=== PATIENT | female | born 1970 | race Two or more races ===

== ENCOUNTER → 2017-12-04 13:09 | Outpatient (CLI) | payer OTHER ==
[~2017-12-04 13:09] MED LIST: BENTYL10 MG/ML PO; DICY20TA PO; FLEXERIL 10 MG PO; GILTUSS TR TAB1 EACH PO; IBUPROFEN800 MG PO; MILLIPRED DP5 M1 PO; ORPH100T PO; SYNTHROID150 MCG; SYNTHROID175 MCG PO; TORADOL10 MG; TRAMADOL HCL50 MG PO; VOLTAREM 50 MG PO; ZITHROMAX TRI-500 MG PO; ZYRTEC10 MG PO
== END | disposition home or self-care (01) ==
LOC: PPHC 13:09
DX: R22.9 Localized swelling, mass and lump, unspecified (principal); E03.8 Other specified hypothyroidism

== ENCOUNTER 2017-12-09 13:22 | Outpatient (CLI) | payer OTHER | END 2017-12-09 13:33 | disposition home or self-care (01) | LOC: MAMO-SONO 13:22 | DX: Z12.31 Encounter for screening mammogram for malignant neoplasm of breast (principal); N63.20 Unspecified lump in the left breast, unspecified quadrant ==

== ENCOUNTER 2017-12-25 13:39 | Outpatient (CLI) | payer OTHER | END 2017-12-25 13:49 | disposition home or self-care (01) | LOC: SONOGRAMA 13:39 | DX: N64.89 Other specified disorders of breast (principal) ==

== ENCOUNTER 2018-05-19 16:21 | Outpatient (CLI) | payer OTHER | END 2018-05-19 16:26 | disposition home or self-care (01) | LOC: LAB 16:21 | DX: R50.9 Fever, unspecified (principal) ==

== ENCOUNTER 2018-11-03 15:17 | Outpatient (CLI) | payer OTHER | END 2018-11-03 15:23 | disposition home or self-care (01) | LOC: RAD 15:17 | DX: M79.644 Pain in right finger(s) (principal) ==

== ENCOUNTER 2019-01-30 05:29 | Emergency (ER) | payer OTHER ==
[~2019-01-30] VITALS: Ht 162.6 cm; Wt 84.4 kg
== END 2019-01-30 14:00 | disposition home or self-care (01) ==
LOC: ER 05:29
DX: S61.431A Puncture wound without foreign body of right hand, initial encounter (principal); W46.0XXA Contact with hypodermic needle, initial encounter; Y93.89 Activity, other specified; Y92.69 Other specified industrial and construction area as the place of occurrence of the external cause; Y99.8 Other external cause status

== ENCOUNTER 2019-02-21 09:34 | Outpatient (CLI) | payer OTHER | END 2019-02-21 09:40 | disposition home or self-care (01) | LOC: LAB 09:34 | DX: E78.49 Other hyperlipidemia (principal); E55.9 Vitamin D deficiency, unspecified; N64.4 Mastodynia; E03.8 Other specified hypothyroidism ==

== ENCOUNTER → 2019-06-09 | Outpatient (CLI) | payer OTHER | END | disposition home or self-care (01) | LOC: RAD 13:59 | DX: M12.512 Traumatic arthropathy, left shoulder (principal); M54.2 Cervicalgia ==

== ENCOUNTER 2019-08-11 14:06 | Outpatient (CLI) | payer OTHER | END 2019-08-11 14:11 | disposition home or self-care (01) | LOC: LAB 14:06 | DX: R05 Cough (principal); J11.1 Influenza due to unidentified influenza virus with other respiratory manifestations ==

== ENCOUNTER → 2019-08-21 | Outpatient (CLI) | payer OTHER | END | disposition home or self-care (01) | LOC: MAMO-SONO 14:22 | DX: Z12.31 Encounter for screening mammogram for malignant neoplasm of breast (principal) ==

== ENCOUNTER → 2020-01-04 14:06 | Outpatient (CLI) | payer OTHER | END | disposition home or self-care (01) | LOC: LAB 14:06 | DX: J11.1 Influenza due to unidentified influenza virus with other respiratory manifestations (principal); R05 Cough ==

== ENCOUNTER → 2020-08-18 | Outpatient (CLI) | payer OTHER | END | disposition home or self-care (01) | LOC: LAB 06:46 | PROVIDERS: ATTEND Internal Medicine Cardiovascular Disease | DX: E03.8 Other specified hypothyroidism (principal); I10 Essential (primary) hypertension; E11.9 Type 2 diabetes mellitus without complications; E78.2 Mixed hyperlipidemia; N39.0 Urinary tract infection, site not specified ==

== ENCOUNTER 2020-08-19 17:25 | Outpatient (CLI) | payer OTHER | END 2020-08-19 17:26 | disposition home or self-care (01) | LOC: PPH VACUNA 17:25 | DX: Z23 Encounter for immunization (principal) ==

== ENCOUNTER 2020-09-06 07:09 | Outpatient (CLI) | payer OTHER | END 2020-09-06 07:12 | disposition home or self-care (01) | LOC: SONOGRAMA 07:09 → MAMO-SONO 07:15 | PROVIDERS: ATTEND Internal Medicine Cardiovascular Disease | DX: R10.84 Generalized abdominal pain (principal) ==

== ENCOUNTER 2021-03-30 05:58 | Emergency (ER) | payer OTHER ==
[~2021-03-30] VITALS: Ht 172.7 cm; Wt 81.2 kg
[2021-03-30] MEDS ORDERED: PROTONIX20 MG (06:15)
== END 2021-03-30 16:26 | disposition home or self-care (01) ==
LOC: ER 05:58
DX: K52.9 Noninfective gastroenteritis and colitis, unspecified (principal); E86.0 Dehydration

== ENCOUNTER 2021-04-26 15:03 | Outpatient (CLI) | payer OTHER ==
[~2021-04-26 15:03] MED LIST changes: +PROTONIX20 MG
== END 2021-04-26 15:14 | disposition home or self-care (01) ==
LOC: RAD 15:03
PROVIDERS: ATTEND Internal Medicine Cardiovascular Disease
DX: M46.47 Discitis, unspecified, lumbosacral region (principal); M12.9 Arthropathy, unspecified

== ENCOUNTER 2021-06-02 07:50 | Outpatient (CLI) | payer OTHER | END 2021-06-02 15:00 | disposition home or self-care (01) | LOC: LAB 07:50 | PROVIDERS: ATTEND Internal Medicine Cardiovascular Disease | DX: E03.8 Other specified hypothyroidism (principal); I10 Essential (primary) hypertension; E11.9 Type 2 diabetes mellitus without complications; E78.2 Mixed hyperlipidemia; E55.9 Vitamin D deficiency, unspecified; R10.84 Generalized abdominal pain ==

== ENCOUNTER 2021-06-08 10:21 | Outpatient (CLI) | payer OTHER | END 2021-06-08 10:23 | disposition home or self-care (01) | LOC: NUCLEAR 10:21 | PROVIDERS: ATTEND Internal Medicine Cardiovascular Disease | DX: R10.9 Unspecified abdominal pain (principal); K80.20 Calculus of gallbladder without cholecystitis without obstruction | CPT/HCPCS: 78226; A9537; J2805 ==

== ENCOUNTER 2021-08-29 09:31 | Outpatient (CLI) | payer OTHER | END 2021-08-29 10:31 | disposition home or self-care (01) | LOC: PPH VACUNA 09:31 | PROVIDERS: ATTEND Emergency Medicine Pediatric Emergency Medicine | DX: Z23 Encounter for immunization (principal) ==

== ENCOUNTER 2021-10-03 04:54 | Day surgery (SDC) | payer OTHER | END 2021-10-03 17:30 | disposition home or self-care (01) | LOC: CIR.AMB 04:54 | PROVIDERS: ATTEND Specialist | DX: K80.10 Calculus of gallbladder with chronic cholecystitis without obstruction (principal); Z20.822 Contact with and (suspected) exposure to COVID-19 ==

== ENCOUNTER 2022-01-29 07:00 | Outpatient (CLI) | payer OTHER | END 2022-01-29 07:01 | disposition home or self-care (01) | LOC: LAB 07:00 | PROVIDERS: ATTEND Internal Medicine Gastroenterology | DX: Z20.828 Contact with and (suspected) exposure to other viral communicable diseases (principal) ==

== ENCOUNTER 2022-05-11 06:49 | Outpatient (CLI) | payer OTHER | END 2022-05-11 07:51 | disposition home or self-care (01) | LOC: LAB 06:49 | PROVIDERS: ATTEND Internal Medicine Hematology & Oncology | DX: D50.8 Other iron deficiency anemias (principal); I10 Essential (primary) hypertension; N39.0 Urinary tract infection, site not specified; R91.8 Other nonspecific abnormal finding of lung field; C56.9 Malignant neoplasm of unspecified ovary; N91.2 Amenorrhea, unspecified ==

== ENCOUNTER 2022-05-17 06:38 | Outpatient (CLI) | payer OTHER | END 2022-05-17 06:43 | disposition home or self-care (01) | LOC: LAB 06:38 | PROVIDERS: ATTEND Internal Medicine Hematology & Oncology | DX: D50.0 Iron deficiency anemia secondary to blood loss (chronic) (principal); I10 Essential (primary) hypertension; E03.8 Other specified hypothyroidism; E78.2 Mixed hyperlipidemia; N39.0 Urinary tract infection, site not specified; D35.2 Benign neoplasm of pituitary gland; D53.1 Other megaloblastic anemias, not elsewhere classified; E55.9 Vitamin D deficiency, unspecified; N93.9 Abnormal uterine and vaginal bleeding, unspecified ==

== ENCOUNTER 2022-05-17 07:11 | Outpatient (CLI) | payer OTHER | END 2022-05-17 07:12 | disposition home or self-care (01) | LOC: SONOGRAMA 07:11 | PROVIDERS: ATTEND Internal Medicine Hematology & Oncology | DX: R10.9 Unspecified abdominal pain (principal); R10.11 Right upper quadrant pain; R10.31 Right lower quadrant pain ==

== ENCOUNTER 2022-05-28 06:42 | Outpatient (CLI) | payer OTHER | END 2022-05-28 07:30 | disposition home or self-care (01) | LOC: TOM 06:42 | PROVIDERS: ATTEND Internal Medicine Hematology & Oncology | DX: C56.1 Malignant neoplasm of right ovary (principal); R10.11 Right upper quadrant pain ==

== ENCOUNTER 2022-05-28 07:20 | Outpatient (CLI) | payer OTHER | END 2022-05-28 08:48 | disposition home or self-care (01) | LOC: RAD 07:20 | PROVIDERS: ATTEND Internal Medicine Hematology & Oncology | DX: N64.4 Mastodynia (principal); Z12.31 Encounter for screening mammogram for malignant neoplasm of breast; N63.10 Unspecified lump in the right breast, unspecified quadrant ==

== ENCOUNTER 2022-08-01 12:09 | Outpatient (CLI) | payer OTHER | END 2022-08-01 12:14 | disposition home or self-care (01) | LOC: PPH VACUNA 12:09 | PROVIDERS: ATTEND Emergency Medicine Pediatric Emergency Medicine | DX: Z23 Encounter for immunization (principal) ==

== ENCOUNTER → 2022-09-04 10:02 | Outpatient (CLI) | payer OTHER | END | disposition home or self-care (01) | LOC: LAB 10:02 | PROVIDERS: ATTEND Preventive Medicine Occupational Medicine | DX: U07.1 COVID-19 (principal) ==

== ENCOUNTER → 2022-09-17 11:18 | Outpatient (CLI) | payer OTHER | END | disposition home or self-care (01) | LOC: LAB 11:18 | PROVIDERS: ATTEND Internal Medicine | DX: U07.1 COVID-19 (principal) ==

== ENCOUNTER 2022-11-03 07:46 | Outpatient (CLI) | payer OTHER ==
[~2022-11-03 07:46] MED LIST changes: +LEVO-T175 MCG PO
== END 2022-11-03 07:47 | disposition home or self-care (01) ==
LOC: LAB 07:46
PROVIDERS: ATTEND Internal Medicine
DX: D25.1 Intramural leiomyoma of uterus (principal); D35.2 Benign neoplasm of pituitary gland; E03.9 Hypothyroidism, unspecified; Z13.1 Encounter for screening for diabetes mellitus; Z13.220 Encounter for screening for lipoid disorders; Z13.29 Encounter for screening for other suspected endocrine disorder; E55.9 Vitamin D deficiency, unspecified

== ENCOUNTER 2023-02-22 06:22 | Outpatient (CLI) | payer OTHER | END 2023-02-22 06:23 | disposition home or self-care (01) | LOC: LAB 06:22 | PROVIDERS: ATTEND Internal Medicine | DX: D25.1 Intramural leiomyoma of uterus (principal); D35.2 Benign neoplasm of pituitary gland; E03.9 Hypothyroidism, unspecified; E55.9 Vitamin D deficiency, unspecified; I10 Essential (primary) hypertension; E03.8 Other specified hypothyroidism; E11.65 Type 2 diabetes mellitus with hyperglycemia ==

== ENCOUNTER 2023-06-14 06:38 | Outpatient (CLI) | payer OTHER | END 2023-06-14 06:39 | disposition home or self-care (01) | LOC: LAB 06:38 | PROVIDERS: ATTEND Internal Medicine | DX: E03.8 Other specified hypothyroidism (principal); E78.5 Hyperlipidemia, unspecified; E11.65 Type 2 diabetes mellitus with hyperglycemia; I10 Essential (primary) hypertension ==

== ENCOUNTER 2023-07-19 08:29 | Emergency (ER) | payer OTHER ==
[~2023-07-19] VITALS: Ht 162.6 cm; Wt 78.9 kg
[2023-07-19] MEDS ORDERED: SYNTHROID112 MCG PO (08:45)
== END 2023-07-19 10:48 | disposition home or self-care (01) ==
LOC: ER 08:29
DX: I10 Essential (primary) hypertension (principal)

== ENCOUNTER 2023-09-29 13:09 | Emergency (ER) | payer OTHER ==
[~2023-09-29] VITALS: Ht 162.6 cm; Wt 78.9 kg
[~2023-09-29 13:09] MED LIST changes: +SYNTHROID112 MCG PO
== END 2023-09-29 18:47 | disposition home or self-care (01) ==
LOC: ER 13:09
DX: M54.9 Dorsalgia, unspecified (principal); M25.572 Pain in left ankle and joints of left foot; M25.562 Pain in left knee; W18.39XA Other fall on same level, initial encounter; Y93.89 Activity, other specified; Y92.89 Other specified places as the place of occurrence of the external cause

== ENCOUNTER 2023-11-03 19:01 | Emergency (ER) | payer OTHER ==
[~2023-11-03] VITALS: Ht 162.6 cm; Wt 78.0 kg
== END 2023-11-04 11:04 | disposition home or self-care (01) ==
LOC: ER 19:02
DX: S82.425A Nondisplaced transverse fracture of shaft of left fibula, initial encounter for closed fracture (principal); W10.8XXA Fall (on) (from) other stairs and steps, initial encounter; Y93.89 Activity, other specified; Y92.89 Other specified places as the place of occurrence of the external cause; Y99.9 Unspecified external cause status

== ENCOUNTER 2023-11-07 10:39 | Outpatient (CLI) | payer OTHER | END 2023-11-07 10:42 | disposition home or self-care (01) | LOC: RAD 10:39 | PROVIDERS: ATTEND Orthopaedic Surgery | DX: M25.572 Pain in left ankle and joints of left foot (principal); S82.425A Nondisplaced transverse fracture of shaft of left fibula, initial encounter for closed fracture ==

== ENCOUNTER 2023-11-30 10:44 | Outpatient (CLI) | payer OTHER ==
[2023-11-30 11:55] LABS: HEMATOCRIT 43.9 % (36.0-45.00); HEMOGLOBIN 14.7 g/dL (12.0-15.00); MEAN CELL VOLUME 87.2 fL (80.00-100.00); MEAN CORPUSCULAR HEMOGLOBIN 29.2 pg (27.00-32.0); MEAN CORPUSCULAR HGB CONC 33.5 g/dl (32.0-36.0); PLATELET COUNT 340 K/uL (150-450); RED BLOOD COUNT 5.03 M/uL (4.00-6.00); RED CELL DISTRIBUTION WIDTH 13.5 % (11.5-14.5)
[2023-11-30 12:36] LABS: BILIRUBIN TOTAL 0.76 mg/dL (0.3-1.2); CALCIUM 10.1 mg/dL (8.5-10.1); CHOL HDL RATIO 3.6 (0-5.0); CREATININE SERUM 0.8 mg/dL (0.55-1.02); GFR 75.92; GLOBULINA 3.8 G/DL (2.4-3.5); MAGNESIUM 2.5 mg/dL (1.8-2.4); PHOSPHOROUS 3.7 mg/dL (2.5-4.9); POTASSIUM 4.21 mEq/L (3.5-5.1); T4 FREE 1.32 NG/ML (0.76-1.46); TOTAL PROTEIN 7.8 gm/dL (6.4-8.2); TSH 0.766 uIU/mL (0.358-3.74)
[2023-12-04 12:07] LABS: CALCIUM IONIZED 5.2 mg/dL (4.5-5.6)
[2023-12-06 18:10] LABS: VITAMIN K 0.15 ng/mL (0.10-2.20)
== END 2023-11-30 10:45 | disposition home or self-care (01) ==
LOC: LAB 10:44
PROVIDERS: ATTEND Orthopaedic Surgery
DX: M85.9 Disorder of bone density and structure, unspecified (principal); E83.42 Hypomagnesemia; E56.1 Deficiency of vitamin K; E88.89 Other specified metabolic disorders; M81.8 Other osteoporosis without current pathological fracture; E78.5 Hyperlipidemia, unspecified; D35.2 Benign neoplasm of pituitary gland; E03.8 Other specified hypothyroidism; E11.65 Type 2 diabetes mellitus with hyperglycemia; I10 Essential (primary) hypertension

== ENCOUNTER 2023-12-09 07:31 | Outpatient (CLI) | payer OTHER | END 2023-12-09 07:37 | disposition home or self-care (01) | LOC: RAD 07:31 | PROVIDERS: ATTEND Orthopaedic Surgery | DX: S82.425D Nondisplaced transverse fracture of shaft of left fibula, subsequent encounter for closed fracture with routine healing (principal); M25.562 Pain in left knee ==

== ENCOUNTER 2024-06-11 10:01 | Outpatient (CLI) | payer OTHER ==
[2024-06-11 11:11] LABS: HEMATOCRIT 41.8 % (36.0-45.00); MEAN CELL VOLUME 85.6 fL (80.00-100.00); MEAN CORPUSCULAR HEMOGLOBIN 28.7 pg (27.00-32.0); MEAN CORPUSCULAR HGB CONC 33.6 g/dl (32.0-36.0); PLATELET COUNT 315 K/uL (150-450); RED BLOOD COUNT 4.88 M/uL (4.00-6.00); RED CELL DISTRIBUTION WIDTH 13.5 % (11.5-14.5)
[2024-06-11 11:48] LABS: CREATININE SERUM 0.71 mg/dL (0.55-1.02); GFR 86.79; POTASSIUM 3.87 mEq/L (3.5-5.1)
[2024-06-11 13:14] LABS: URINE APPEARANCE Clear; URINE BILIRRUBIN Negative (NEGATIVE); URINE BLOOD Negative; URINE COLOR Yellow; URINE GLUCOSE Negative (NEGATIVE); URINE LEUKOCYTE Negative; URINE NITRATE Negative; URINE PROTEIN Negative (NEGATIVE)
[2024-06-11 13:18] LABS: URINE BACTERIA 215.4 uL (0.0-1933); URINE EPITHELIAL CELLS 8.4 uL (0.0-38.8); URINE RBC 5.6 uL (0.0-20.8); URINE WBC 8.1 uL (0.0-23.2)
== END 2024-06-11 14:50 | disposition home or self-care (01) ==
LOC: LAB 10:01
DX: N39.0 Urinary tract infection, site not specified (principal)

== ENCOUNTER → 2024-06-26 06:47 | Outpatient (CLI) | payer OTHER ==
[2024-06-26 07:27] LABS: HEMATOCRIT 42.3 % (36.0-45.00); HEMOGLOBIN 14.1 g/dL (12.0-15.00); MEAN CELL VOLUME 87.2 fL (80.00-100.00); MEAN CORPUSCULAR HEMOGLOBIN 29.2 pg (27.00-32.0); MEAN CORPUSCULAR HGB CONC 33.5 g/dl (32.0-36.0); PLATELET COUNT 301 K/uL (150-450); RED BLOOD COUNT 4.85 M/uL (4.00-6.00); RED CELL DISTRIBUTION WIDTH 13.3 % (11.5-14.5)
[2024-06-26 07:30] LABS: ERYTHROCYTE SEDIMENTATION RATE 28 mm/hr
[2024-06-26 08:12] LABS: BILIRUBIN TOTAL 1.07 mg/dL (0.3-1.2); CALCIUM 9.7 mg/dL (8.5-10.1); CHOL HDL RATIO 3.3 (0-5.0); CREATININE SERUM 0.8 mg/dL (0.55-1.02); FREE TRIODOTIRONINE 2.69 pg/ml (2.18-3.98); GFR 75.62; GLOBULINA 3.4 G/DL (2.4-3.5); POTASSIUM 4.21 mEq/L (3.5-5.1); T4 TOTAL 13.65 UG/DL (4.8-13.9); TOTAL PROTEIN 7.4 gm/dL (6.4-8.2); TSH 0.495 uIU/mL (0.358-3.74)
[2024-06-26 08:34] LABS: C-REACTIVE PROTEIN 0.37 MG/DL (0.00-0.29)
[2024-06-26 10:11] LABS: ob NEGATIVE (NEGATIVE)
[2024-06-26 11:11] LABS: URINE BACTERIA 846.6 uL (0.0-1933); URINE EPITHELIAL CELLS 11.2 uL (0.0-38.8); URINE RBC 2.1 uL (0.0-20.8); URINE WBC 16.6 uL (0.0-23.2)
[2024-06-26 11:13] LABS: URINE APPEARANCE Clear; URINE BILIRRUBIN Negative (NEGATIVE); URINE BLOOD Negative; URINE COLOR Yellow; URINE GLUCOSE Negative (NEGATIVE); URINE LEUKOCYTE Negative; URINE NITRATE Negative; URINE PROTEIN Negative (NEGATIVE)
== END | disposition home or self-care (01) ==
LOC: LAB 06:47
PROVIDERS: ATTEND Internal Medicine
DX: D35.2 Benign neoplasm of pituitary gland (principal); D25.1 Intramural leiomyoma of uterus; E55.9 Vitamin D deficiency, unspecified; E03.9 Hypothyroidism, unspecified; R73.9 Hyperglycemia, unspecified; Z13.220 Encounter for screening for lipoid disorders; Z00.00 Encounter for general adult medical examination without abnormal findings; Z12.11 Encounter for screening for malignant neoplasm of colon; N39.0 Urinary tract infection, site not specified

== ENCOUNTER 2024-06-29 13:28 | Outpatient (CLI) | payer OTHER | END 2024-06-29 13:32 | disposition home or self-care (01) | LOC: RAD 13:28 | PROVIDERS: ATTEND Internal Medicine | DX: M54.10 Radiculopathy, site unspecified (principal); S82.402A Unspecified fracture of shaft of left fibula, initial encounter for closed fracture ==

== ENCOUNTER 2024-07-22 14:22 | Emergency (ER) | payer OTHER ==
[~2024-07-22] VITALS: Ht 162.6 cm; Wt 78.0 kg
[2024-07-22] MEDS ORDERED: AMBIEN5 MG (14:39)
[2024-07-22] MEDS ORDERED: FAMOTIDINE/PF 20 MG in 0.9 % SODIUM CHLORIDE 8 ML IV PUSH STA (16:32)
[2024-07-22] MEDS ORDERED: ONDANSETRON HCL 2 MG/ML VIAL ONE (16:36)
[2024-07-22] MEDS ORDERED: KETOROLAC TROMETHAMINE 30 MG VIAL ONE (16:36)
[2024-07-22] MEDS ORDERED: FAMOTIDINE/PF 20 MG/2 ML VIAL ONE (16:37)
[2024-07-22] MEDS ORDERED: ENALAPRILAT DIHYDRATE 1.25 MG/ML VIAL IV ONE ×2 (16:37→16:45)
[2024-07-22] MEDS ORDERED: KETOROLAC TROMETHAMINE 30 MG VIAL IV ONE (16:45)
[2024-07-22] MEDS ORDERED: 0.9 % SODIUM CHLORIDE 1,000 ML IV SCH (16:45)
[2024-07-22] MEDS ORDERED: ONDANSETRON HCL 2 MG/ML VIAL IV ONE (16:45)
[2024-07-22 17:30] LABS: PH,URINE 6.5 (5.0-8.0); URINE APPEARANCE Clear; URINE BILIRRUBIN Negative (NEGATIVE); URINE BLOOD Negative; URINE COLOR Yellow; URINE GLUCOSE Negative (NEGATIVE); URINE KETONE Trace (NEGATIVE); URINE LEUKOCYTE Negative; URINE NITRATE Negative; URINE PROTEIN Negative (NEGATIVE); URINE UROBILINOGEN 0.2 E.U./dl
[2024-07-22 17:34] LABS: URINE BACTERIA 434.6 uL (0.0-1933); URINE EPITHELIAL CELLS 22.4 uL (0.0-38.8); URINE RBC 6.8 uL (0.0-20.8); URINE WBC 5.5 uL (0.0-23.2)
[2024-07-22 17:34] LABS: HEMATOCRIT 45.8 % (36.0-45.00); HEMOGLOBIN 15.2 g/dL (12.0-15.00); MEAN CELL VOLUME 86.3 fL (80.00-100.00); MEAN CORPUSCULAR HEMOGLOBIN 28.5 pg (27.00-32.0); MEAN CORPUSCULAR HGB CONC 33.1 g/dl (32.0-36.0); PLATELET COUNT 334 K/uL (150-450); RED BLOOD COUNT 5.31 M/uL (4.00-6.00); RED CELL DISTRIBUTION WIDTH 13.1 % (11.5-14.5)
[2024-07-22 17:45] LABS: URINE CAST 0.15 uL (0.0-1.40)
[2024-07-22 17:58] LABS: ALBUMIN 4.6 gm/dL (3.4-5.0); BILIRUBIN TOTAL 0.92 mg/dL (0.3-1.2); CALCIUM 10.6 mg/dL (8.5-10.1); CREATININE SERUM 0.78 mg/dL (0.55-1.02); GFR 77.86; GLOBULINA 4.4 G/DL (2.4-3.5); POTASSIUM 4.25 mEq/L (3.5-5.1)
[2024-07-22] MEDS ORDERED: COZAAR25 MG PO (20:48)
[2024-07-22] MEDS ORDERED: ZOFRAN8 MG PO (20:48)
[2024-07-22] MEDS ORDERED: LEVSIN/SL0.125 MG SL (20:48)
[2024-07-22] MEDS ORDERED: PEPCID AC20 MG PO (20:48)
== END 2024-07-22 21:05 | disposition home or self-care (01) ==
LOC: ER 14:23
PROVIDERS: General Practice
DX: B34.9 Viral infection, unspecified (principal); I10 Essential (primary) hypertension; Z20.822 Contact with and (suspected) exposure to COVID-19; R10.32 Left lower quadrant pain

== ENCOUNTER → 2024-09-18 06:37 | Outpatient (CLI) | payer OTHER ==
[~2024-09-18 06:37] MED LIST changes: +AMBIEN5 MG; +COZAAR25 MG PO; +LEVSIN/SL0.125 MG SL; +PEPCID AC20 MG PO; +ZOFRAN8 MG PO
[2024-09-18 07:20] LABS: URINE APPEARANCE Clear; URINE BILIRRUBIN Negative (NEGATIVE); URINE BLOOD Negative; URINE COLOR Yellow; URINE GLUCOSE Negative (NEGATIVE); URINE KETONE Negative (NEGATIVE); URINE LEUKOCYTE Trace; URINE NITRATE Negative; URINE PROTEIN Negative (NEGATIVE); URINE UROBILINOGEN 0.2 E.U./dl
[2024-09-18 07:23] LABS: URINE BACTERIA 398.1 uL (0.0-1933); URINE EPITHELIAL CELLS 38.4 uL (0.0-38.8); URINE RBC 7.7 uL (0.0-20.8); URINE WBC 26.2 uL (0.0-23.2)
[2024-09-18 07:34] LABS: HEMATOCRIT 41.6 % (36.0-45.00); HEMOGLOBIN 13.8 g/dL (12.0-15.00); MEAN CELL VOLUME 86.5 fL (80.00-100.00); MEAN CORPUSCULAR HEMOGLOBIN 28.8 pg (27.00-32.0); MEAN CORPUSCULAR HGB CONC 33.3 g/dl (32.0-36.0); PLATELET COUNT 287 K/uL (150-450); RED BLOOD COUNT 4.81 M/uL (4.00-6.00); RED CELL DISTRIBUTION WIDTH 13.4 % (11.5-14.5)
[2024-09-18 07:35] LABS: URINE CAST 0.15 uL (0.0-1.40)
[2024-09-18 07:52] LABS: ERYTHROCYTE SEDIMENTATION RATE 25 mm/hr
[2024-09-18 08:35] LABS: ALBUMIN 3.9 gm/dL (3.4-5.0); ALKALINE PHOSPHATASE 124 U/L (50-136); ALT/SGPT 36 U/L (12-78); ANION GAP 6 (10.0-20.0); AST/SGOT 20 U/L (15-37); BILIRUBIN TOTAL 0.64 mg/dL (0.3-1.2); BLOOD UREA NITROGEN 18 mg/dL (7-18); BUN CREA RATIO 25 (7.0-25.0); CALCIUM 9.7 mg/dL (8.5-10.1); CARBON DIOXIDE 30 mEq/L (21-32); CHLORIDE 109 mmol/L (98-107); CHOLESTEROL 215 mg/dL (0-200); CREATININE SERUM 0.72 mg/dL (0.55-1.02); FREE TRIODOTIRONINE 2.42 pg/ml (2.18-3.98); GLOBULINA 3.4 G/DL (2.4-3.5); GLUCOSE FASTING 100 mg/dL (65-100); HDL 54 mg/dl (40-60); LDL 144 mg/dl (0-130); OSMOLALITY SERUM 283 MOSM/KG (275-295); POTASSIUM 4.07 mEq/L (3.5-5.1); SODIUM 141 mmol/L (136-145); T4 TOTAL 12.22 UG/DL (4.8-13.9); TOTAL PROTEIN 7.3 gm/dL (6.4-8.2); TRIGLYCERIDES 83 mg/dL (0-150); VLDL 16 (0-39)
[2024-09-18 08:36] LABS: TSH 0.345 uIU/mL (0.358-3.74)
[2024-09-18 08:37] LABS: C-REACTIVE PROTEIN < 0.29 MG/DL (0.00-0.29)
[2024-09-18 12:52] LABS: ob NEGATIVE (NEGATIVE)
== END | disposition home or self-care (01) ==
LOC: LAB 06:37
PROVIDERS: ATTEND Internal Medicine
DX: E03.9 Hypothyroidism, unspecified (principal); N39.0 Urinary tract infection, site not specified; D35.2 Benign neoplasm of pituitary gland; D25.1 Intramural leiomyoma of uterus; Z12.31 Encounter for screening mammogram for malignant neoplasm of breast; Z00.00 Encounter for general adult medical examination without abnormal findings; E55.9 Vitamin D deficiency, unspecified; R73.9 Hyperglycemia, unspecified; Z13.220 Encounter for screening for lipoid disorders

== ENCOUNTER 2024-10-31 10:01 | Outpatient (CLI) | payer OTHER ==
[2024-10-31 11:14] LABS: HEMATOCRIT 40.5 % (36.0-45.00); HEMOGLOBIN 13.6 g/dL (12.0-15.00); MEAN CELL VOLUME 86.6 fL (80.00-100.00); MEAN CORPUSCULAR HEMOGLOBIN 29.1 pg (27.00-32.0); MEAN CORPUSCULAR HGB CONC 33.6 g/dl (32.0-36.0); PLATELET COUNT 303 K/uL (150-450); RED BLOOD COUNT 4.67 M/uL (4.00-6.00); RED CELL DISTRIBUTION WIDTH 13.9 % (11.5-14.5)
[2024-10-31 12:05] LABS: ALBUMIN 3.9 gm/dL (3.4-5.0); BILIRUBIN TOTAL 0.75 mg/dL (0.3-1.2); CALCIUM 9.7 mg/dL (8.5-10.1); CHOL HDL RATIO 3.8 (0-5.0); CREATININE SERUM 0.72 mg/dL (0.55-1.02); GFR 85.4; GLOBULINA 3.3 G/DL (2.4-3.5); POTASSIUM 4.35 mEq/L (3.5-5.1); TOTAL PROTEIN 7.2 gm/dL (6.4-8.2); TSH 0.469 uIU/mL (0.358-3.74)
== END 2024-10-31 10:02 | disposition home or self-care (01) ==
LOC: LAB 10:01
PROVIDERS: ATTEND Internal Medicine
DX: E03.8 Other specified hypothyroidism (principal); D35.2 Benign neoplasm of pituitary gland; I10 Essential (primary) hypertension; E11.65 Type 2 diabetes mellitus with hyperglycemia; E78.5 Hyperlipidemia, unspecified

== ENCOUNTER 2024-12-18 06:20 | Outpatient (CLI) | payer OTHER ==
[2024-12-18 07:07] LABS: HEMATOCRIT 41.5 % (36.0-45.00); HEMOGLOBIN 14.1 g/dL (12.0-15.00); MEAN CELL VOLUME 86.5 fL (80.00-100.00); MEAN CORPUSCULAR HEMOGLOBIN 29.4 pg (27.00-32.0); PLATELET COUNT 284 K/uL (150-450); RED CELL DISTRIBUTION WIDTH 13.8 % (11.5-14.5)
[2024-12-18 07:23] LABS: ERYTHROCYTE SEDIMENTATION RATE 13 mm/hr
[2024-12-18 07:40] LABS: ob NEGATIVE (NEGATIVE)
[2024-12-18 08:23] LABS: ALBUMIN 3.8 gm/dL (3.4-5.0); ALKALINE PHOSPHATASE 126 U/L (50-136); ALT/SGPT 29 U/L (12-78); ANION GAP 5 (10.0-20.0); AST/SGOT 21 U/L (15-37); BLOOD UREA NITROGEN 16 mg/dL (7-18); BUN CREA RATIO 21 (7.0-25.0); CALCIUM 9.5 mg/dL (8.5-10.1); CARBON DIOXIDE 32 mEq/L (21-32); CHLORIDE 108 mmol/L (98-107); CHOL HDL RATIO 3.4 (0-5.0); CHOLESTEROL 191 mg/dL (0-200); CREATININE SERUM 0.76 mg/dL (0.55-1.02); FREE TRIODOTIRONINE 2.88 pg/ml (2.18-3.98); GFR 79.91; GLOBULINA 3.4 G/DL (2.4-3.5); GLUCOSE FASTING 94 mg/dL (65-100); HDL 57 mg/dl (40-60); LDL 117 mg/dl (0-130); OSMOLALITY SERUM 282 MOSM/KG (275-295); POTASSIUM 4.05 mEq/L (3.5-5.1); SODIUM 141 mmol/L (136-145); TOTAL PROTEIN 7.2 gm/dL (6.4-8.2); TRIGLYCERIDES 84 mg/dL (0-150); VLDL 16 (0-39)
[2024-12-18 08:24] LABS: C-REACTIVE PROTEIN < 0.29 MG/DL (0.00-0.29)
[2024-12-18 08:25] LABS: TSH 0.278 uIU/mL (0.358-3.74)
[2024-12-18 12:39] LABS: URINE APPEARANCE Clear; URINE BILIRRUBIN Negative (NEGATIVE); URINE BLOOD Negative; URINE COLOR Yellow; URINE GLUCOSE Negative (NEGATIVE); URINE KETONE Negative (NEGATIVE); URINE LEUKOCYTE Negative; URINE NITRATE Negative; URINE PROTEIN Negative (NEGATIVE); URINE UROBILINOGEN 0.2 E.U./dl
[2024-12-18 12:40] LABS: URINE BACTERIA 223.8 uL (0.0-1933)
[2024-12-18 12:42] LABS: URINE RBC 1.1 uL (0.0-20.8)
== END 2024-12-18 06:34 | disposition home or self-care (01) ==
LOC: LAB 06:20
PROVIDERS: ATTEND Internal Medicine
DX: E03.9 Hypothyroidism, unspecified (principal); Z13.220 Encounter for screening for lipoid disorders; R73.9 Hyperglycemia, unspecified; E55.9 Vitamin D deficiency, unspecified; D25.1 Intramural leiomyoma of uterus; D35.2 Benign neoplasm of pituitary gland; N39.0 Urinary tract infection, site not specified; Z12.11 Encounter for screening for malignant neoplasm of colon; Z00.00 Encounter for general adult medical examination without abnormal findings

== ENCOUNTER 2025-01-26 08:14 | Emergency (ER) | payer OTHER ==
[~2025-01-26] VITALS: Ht 162.6 cm; Wt 78.9 kg
[2025-01-26] MEDS ORDERED: RESTORIL30 MG PO (08:31)
[2025-01-26] MEDS ORDERED: TOPROL XL25 M1 PO (08:31)
[2025-01-26] MEDS ORDERED: CARDURA1 MG PO (08:31)
[2025-01-26] MEDS ORDERED: KETOROLAC TROMETHAMINE 60 MG VIAL IM STA (08:59)
[2025-01-26] MEDS ORDERED: KETOROLAC TROMETHAMINE 60 MG VIAL IM ONE (09:13)
[2025-01-26] MEDS ORDERED: hydrOXYzine PAMOATE 25 MG CAPSULE PO ONE ×2 (09:22→10:15)
== END 2025-01-26 11:36 | disposition home or self-care (01) ==
LOC: ER 08:17
DX: S40.012A Contusion of left shoulder, initial encounter (principal); S70.02XA Contusion of left hip, initial encounter; S30.0XXA Contusion of lower back and pelvis, initial encounter; V49.88XA Car occupant (driver) (passenger) injured in other specified transport accidents, initial encounter; Y93.89 Activity, other specified; Y92.413 State road as the place of occurrence of the external cause; S13.4XXA Sprain of ligaments of cervical spine, initial encounter; E03.8 Other specified hypothyroidism; I10 Essential (primary) hypertension

== ENCOUNTER 2025-03-31 13:15 | Emergency (ER) | payer OTHER ==
[~2025-03-31] VITALS: Ht 162.6 cm; Wt 78.9 kg
[~2025-03-31 13:15] MED LIST changes: +CARDURA1 MG PO; +RESTORIL30 MG PO; +TOPROL XL25 M1 PO
[2025-03-31] MEDS ORDERED: KETOROLAC TROMETHAMINE 30 MG VIAL ONE (15:24)
[2025-03-31] MEDS ORDERED: ONDANSETRON HCL 2 MG/ML VIAL ONE (15:24)
[2025-03-31] MEDS ORDERED: FAMOTIDINE/PF 20 MG/2 ML VIAL ONE (15:25)
[2025-03-31] MEDS ORDERED: 0.9 % SODIUM CHLORIDE 500 ML IV ONE (15:30)
[2025-03-31] MEDS ORDERED: KETOROLAC TROMETHAMINE 30 MG VIAL IV ONE (15:30)
[2025-03-31] MEDS ORDERED: ONDANSETRON HCL 2 MG/ML VIAL IV ONE (15:30)
[2025-03-31] MEDS ORDERED: FAMOTIDINE/PF 20 MG/2 ML VIAL IV ONE (15:30)
[2025-03-31 16:19] LABS: PH,URINE 6.5 (5.0-8.0); URINE APPEARANCE Clear; URINE BILIRRUBIN Negative (NEGATIVE); URINE BLOOD Negative; URINE COLOR Yellow; URINE GLUCOSE Negative (NEGATIVE); URINE KETONE Trace (NEGATIVE); URINE LEUKOCYTE Negative; URINE NITRATE Negative; URINE PROTEIN Negative (NEGATIVE); URINE UROBILINOGEN 0.2 E.U./dl
[2025-03-31 16:21] LABS: HEMATOCRIT 44.4 % (36.0-45.00); HEMOGLOBIN 14.8 g/dL (12.0-15.00); MEAN CELL VOLUME 86.9 fL (80.00-100.00); MEAN CORPUSCULAR HEMOGLOBIN 28.9 pg (27.00-32.0); MEAN CORPUSCULAR HGB CONC 33.3 g/dl (32.0-36.0); PLATELET COUNT 315 K/uL (150-450); RED BLOOD COUNT 5.11 M/uL (4.00-6.00); RED CELL DISTRIBUTION WIDTH 13.3 % (11.5-14.5)
[2025-03-31 16:21] LABS: URINE BACTERIA 50.1 uL (0.0-1933); URINE RBC 5.3 uL (0.0-20.8); URINE WBC 3.3 uL (0.0-23.2)
[2025-03-31 16:35] LABS: ALBUMIN 4.4 gm/dL (3.4-5.0); BILIRUBIN TOTAL 0.65 mg/dL (0.3-1.2); BILIRUBIN,CONJUGATED 0.16 mg/dL (0.0-0.2); BILIRUBIN,UNCONJUGATED 0.49 mg/dL (0.0-0.6); CALCIUM 10.2 mg/dL (8.5-10.1); CREATININE SERUM 0.88 mg/dL (0.55-1.02); GFR 67.48; GLOBULINA 4.4 G/DL (2.4-3.5); POTASSIUM 3.96 mEq/L (3.5-5.1); TOTAL PROTEIN 8.8 gm/dL (6.4-8.2)
[2025-03-31] MEDS ORDERED: MIRALAX17 GM PO (18:40)
[2025-03-31] MEDS ORDERED: METHYLPREDNISOLONE SOD SUCC 125 MG VIAL IV ONE (18:45)
[2025-03-31] MEDS ORDERED: METHYLPREDNISOLONE SOD SUCC 125 MG VIAL ONE (19:03)
== END 2025-03-31 19:10 ==
LOC: ER 13:16
PROVIDERS: General Practice
DX: R10.9 Unspecified abdominal pain (principal); I10 Essential (primary) hypertension; E03.8 Other specified hypothyroidism
CPT/HCPCS: 36415; 74177; Q9965

== ENCOUNTER → 2025-04-02 06:20 | Outpatient (CLI) | payer OTHER ==
[~2025-04-02 06:20] MED LIST changes: +MIRALAX17 GM PO
[2025-04-02 07:11] LABS: URINE APPEARANCE Clear; URINE BILIRRUBIN Negative (NEGATIVE); URINE BLOOD Negative; URINE COLOR Yellow; URINE GLUCOSE Negative (NEGATIVE); URINE KETONE Negative (NEGATIVE); URINE LEUKOCYTE Small; URINE NITRATE Negative; URINE PROTEIN Negative (NEGATIVE); URINE UROBILINOGEN 0.2 E.U./dl
[2025-04-02 07:12] LABS: URINE EPITHELIAL CELLS 33.8 uL (0.0-38.8); URINE RBC 12.5 uL (0.0-20.8); URINE WBC 68.5 uL (0.0-23.2)
[2025-04-02 07:28] LABS: URINE CAST 0.14 uL (0.0-1.40)
[2025-04-02 07:40] LABS: HEMATOCRIT 41.3 % (36.0-45.00); HEMOGLOBIN 13.8 g/dL (12.0-15.00); MEAN CELL VOLUME 86.8 fL (80.00-100.00); MEAN CORPUSCULAR HEMOGLOBIN 29.1 pg (27.00-32.0); MEAN CORPUSCULAR HGB CONC 33.5 g/dl (32.0-36.0); PLATELET COUNT 292 K/uL (150-450); RED BLOOD COUNT 4.76 M/uL (4.00-6.00); RED CELL DISTRIBUTION WIDTH 13.8 % (11.5-14.5)
[2025-04-02 07:47] LABS: ERYTHROCYTE SEDIMENTATION RATE 22 mm/hr
[2025-04-02 08:11] LABS: ALBUMIN 4.1 gm/dL (3.4-5.0); ALKALINE PHOSPHATASE 109 U/L (50-136); ALT/SGPT 30 U/L (12-78); ANION GAP 9 (10.0-20.0); AST/SGOT 17 U/L (15-37); BILIRUBIN TOTAL 1.04 mg/dL (0.3-1.2); BLOOD UREA NITROGEN 21 mg/dL (7-18); BUN CREA RATIO 27 (7.0-25.0); CALCIUM 9.6 mg/dL (8.5-10.1); CARBON DIOXIDE 29 mEq/L (21-32); CHLORIDE 109 mmol/L (98-107); CHOL HDL RATIO 3.6 (0-5.0); CHOLESTEROL 206 mg/dL (0-200); CREATININE SERUM 0.77 mg/dL (0.55-1.02); FREE TRIODOTIRONINE 2.11 pg/ml (2.18-3.98); GFR 78.72; GLOBULINA 3.3 G/DL (2.4-3.5); GLUCOSE FASTING 106 mg/dL (65-100); HDL 58 mg/dl (40-60); LDL 129 mg/dl (0-130); OSMOLALITY SERUM 288 MOSM/KG (275-295); POTASSIUM 3.83 mEq/L (3.5-5.1); SODIUM 143 mmol/L (136-145); T4 TOTAL 12.73 UG/DL (4.8-13.9); TOTAL PROTEIN 7.4 gm/dL (6.4-8.2); TRIGLYCERIDES 94 mg/dL (0-150); TSH 0.418 uIU/mL (0.358-3.74); VLDL 18 (0-39)
[2025-04-02 08:16] LABS: C-REACTIVE PROTEIN < 0.29 MG/DL (0.00-0.29)
[2025-04-02 08:16] LABS: ob NEGATIVE (NEGATIVE)
== END | disposition home or self-care (01) ==
LOC: LAB 06:20
PROVIDERS: ATTEND Internal Medicine
DX: Z13.220 Encounter for screening for lipoid disorders (principal); R73.9 Hyperglycemia, unspecified; E03.9 Hypothyroidism, unspecified; E55.9 Vitamin D deficiency, unspecified; D25.1 Intramural leiomyoma of uterus; D35.2 Benign neoplasm of pituitary gland; N39.0 Urinary tract infection, site not specified; Z12.11 Encounter for screening for malignant neoplasm of colon; Z00.00 Encounter for general adult medical examination without abnormal findings

== ENCOUNTER 2025-04-07 09:52 | Outpatient (CLI) | payer OTHER | END 2025-04-07 14:56 | disposition home or self-care (01) | LOC: LAB 09:52 | PROVIDERS: ATTEND Internal Medicine | DX: N39.0 Urinary tract infection, site not specified (principal); E11.65 Type 2 diabetes mellitus with hyperglycemia; E03.8 Other specified hypothyroidism; E78.5 Hyperlipidemia, unspecified; E53.8 Deficiency of other specified B group vitamins; I10 Essential (primary) hypertension ==

== ENCOUNTER 2025-05-25 13:19 | Outpatient (CLI) | payer OTHER ==
[2025-05-25 14:02] LABS: COVID-19 AG NEGATIVE (NEGATIVE)
[2025-05-25 14:40] LABS: MYCOPLASMA PNEUMONIAE IGM NON REACTIVE (NO REACTIVE)
[2025-05-25 15:12] LABS: INFLUENZA A AG NEGATIVE (NEGATIVE); INFLUENZA B AG NEGATIVE (NEGATIVE)
== END 2025-05-25 13:28 | disposition home or self-care (01) ==
LOC: LAB 13:19
PROVIDERS: ATTEND Internal Medicine Endocrinology, Diabetes & Metabolism
DX: J20.9 Acute bronchitis, unspecified (principal)

== ENCOUNTER 2025-06-08 12:08 | Outpatient (CLI) | payer OTHER ==
[2025-06-08 13:17] LABS: BASO % 0.4 % (0.1-1.2); EOS # 0.09 (0.04-0.54); EOS % 0.8 % (0.7-7.0); LYMPH # 2.28 (1.18-3.74); LYMPH % 20.4 % (19.3-53.1); MEAN PLATELET VOLUME 9.10 fl (9.4-12.4); MONO # 0.60 (0.24-0.82); MONO % 5.4 % (4.7-12.5); NEUT # 8.12 (1.56-6.13); NEUT % 72.7 % (34.0-71.1); RED CELL DISTRIBUTION WIDTH 12.8 % (11.6-14.4)
[2025-06-08 13:28] LABS: COVID-19 AG POSITIVE (NEGATIVE)
[2025-06-08 14:04] LABS: MYCOPLASMA PNEUMONIAE IGM NON REACTIVE (NO REACTIVE)
== END 2025-06-08 12:09 | disposition home or self-care (01) ==
LOC: LAB 12:08
PROVIDERS: ATTEND Internal Medicine Cardiovascular Disease
DX: J11.1 Influenza due to unidentified influenza virus with other respiratory manifestations (principal); A49.3 Mycoplasma infection, unspecified site; Z20.822 Contact with and (suspected) exposure to COVID-19

== ENCOUNTER 2025-06-21 13:44 | Outpatient (CLI) | payer OTHER ==
[2025-06-23 07:07] LABS: HEPATITIS A ANTIBODY IGG Negative (Negative); HEPATITIS C VIRUS ANTIBODY Non Reactive (Non Reactive)
[2025-06-23 09:11] LABS: HEPATITIS B SURFACE ANTIBODY Equivocal (.)
== END 2025-06-21 13:53 | disposition home or self-care (01) ==
LOC: LAB 13:44
PROVIDERS: ATTEND Internal Medicine Cardiovascular Disease
DX: A64 Unspecified sexually transmitted disease (principal); B19.9 Unspecified viral hepatitis without hepatic coma

== ENCOUNTER 2025-08-20 06:44 | Outpatient (CLI) | payer OTHER ==
[2025-08-20 07:33] LABS: BASO % 0.9 % (0.1-1.2); EOS # 0.09 (0.04-0.54); EOS % 1.2 % (0.7-7.0); LYMPH # 1.78 (1.18-3.74); LYMPH % 23.7 % (19.3-53.1); MEAN PLATELET VOLUME 9.70 fl (9.4-12.4); MONO # 0.50 (0.24-0.82); MONO % 6.6 % (4.7-12.5); NEUT # 5.07 (1.56-6.13); NEUT % 67.5 % (34.0-71.1); RED CELL DISTRIBUTION WIDTH 12.5 % (11.6-14.4)
[2025-08-20 07:45] LABS: ERYTHROCYTE SEDIMENTATION RATE 24 mm/hr (0-30)
[2025-08-20 08:28] LABS: ob NEGATIVE (NEGATIVE)
[2025-08-20 08:31] LABS: ALT/SGPT 39 U/L (12-78); AST/SGOT 23 U/L (15-37); BILIRUBIN TOTAL 0.93 mg/dL (0.3-1.2); BUN CREA RATIO 23 (7.0-25.0); CHOL HDL RATIO 3.5 (0-5.0); CREATININE SERUM 0.77 mg/dL (0.55-1.02); FREE TRIODOTIRONINE 2.81 pg/ml (2.18-3.98); GFR 78.72; GLOBULINA 3.5 G/DL (2.4-3.5); GLUCOSE FASTING 101 mg/dL (65-100); HDL 61 mg/dl (40-60); LDL 136 mg/dl (0-130); OSMOLALITY SERUM 287 MOSM/KG (275-295); T4 TOTAL 12.33 UG/DL (4.8-13.9); VLDL 15 (0-39)
[2025-08-20 08:35] LABS: TSH 0.324 uIU/mL (0.358-3.74)
[2025-08-20 11:26] LABS: URINE APPEARANCE Clear; URINE BILIRRUBIN Negative (NEGATIVE); URINE BLOOD Negative; URINE COLOR Yellow; URINE GLUCOSE Negative (NEGATIVE); URINE KETONE Negative (NEGATIVE); URINE LEUKOCYTE Trace; URINE NITRATE Negative; URINE PROTEIN Negative (NEGATIVE); URINE UROBILINOGEN 0.2 E.U./dl
[2025-08-20 11:31] LABS: URINE BACTERIA 52.7 uL (0.0-1933); URINE EPITHELIAL CELLS 16.5 uL (0.0-38.8); URINE RBC 2.7 uL (0.0-20.8); URINE WBC 22.1 uL (0.0-23.2)
[2025-08-20 12:07] LABS: URINE CAST 0.00 uL (0.0-1.40)
== END 2025-08-20 06:45 | disposition home or self-care (01) ==
LOC: LAB 06:44
PROVIDERS: ATTEND Internal Medicine
DX: R73.9 Hyperglycemia, unspecified (principal); E03.9 Hypothyroidism, unspecified; E55.9 Vitamin D deficiency, unspecified; D25.1 Intramural leiomyoma of uterus; D35.2 Benign neoplasm of pituitary gland; N39.0 Urinary tract infection, site not specified; Z13.220 Encounter for screening for lipoid disorders; Z12.11 Encounter for screening for malignant neoplasm of colon; Z00.00 Encounter for general adult medical examination without abnormal findings

== ENCOUNTER 2025-09-14 06:22 | Outpatient (CLI) | payer OTHER ==
[2025-09-14 07:04] LABS: BASO % 1.0 % (0.1-1.2); EOS # 0.12 (0.04-0.54); EOS % 1.7 % (0.7-7.0); LYMPH # 1.74 (1.18-3.74); LYMPH % 24.3 % (19.3-53.1); MEAN PLATELET VOLUME 9.40 fl (9.4-12.4); MONO # 0.48 (0.24-0.82); MONO % 6.7 % (4.7-12.5); NEUT # 4.71 (1.56-6.13); NEUT % 65.7 % (34.0-71.1); RED CELL DISTRIBUTION WIDTH 12.1 % (11.6-14.4)
[2025-09-14 07:59] LABS: ALT/SGPT 42.0 U/L (12-78); AST/SGOT 27.0 U/L (15-37); BILIRUBIN TOTAL 0.7 mg/dL (0.3-1.2); BUN CREA RATIO 23.0 (7.0-25.0); CHOL HDL RATIO 3.9 (0-5.0); CREATININE SERUM 0.74 mg/dL (0.55-1.02); GFR 82.41; GLOBULINA 3.2 G/DL (2.4-3.5); GLUCOSE FASTING 116.0 mg/dL (65-100); HDL 57.0 mg/dl (40-60); LDL 147.0 mg/dl (0-130); OSMOLALITY SERUM 286.0 MOSM/KG (275-295); T4 FREE 1.09 NG/ML (0.76-1.46); TSH 0.378 uIU/mL (0.358-3.74); VLDL 19.0 (0-39)
== END 2025-09-14 06:25 | disposition home or self-care (01) ==
LOC: LAB 06:22
PROVIDERS: ATTEND Internal Medicine
DX: E11.65 Type 2 diabetes mellitus with hyperglycemia (principal); E78.5 Hyperlipidemia, unspecified; I10 Essential (primary) hypertension; E03.8 Other specified hypothyroidism; D35.2 Benign neoplasm of pituitary gland

== ENCOUNTER 2025-09-16 13:30 | Outpatient (CLI) | payer OTHER | END 2025-09-16 13:40 | disposition home or self-care (01) | LOC: PPH VACUNA 13:30 | PROVIDERS: ATTEND Emergency Medicine Pediatric Emergency Medicine | DX: Z23 Encounter for immunization (principal) ==

== ENCOUNTER 2025-09-28 11:15 | Outpatient (CLI) | payer OTHER | END 2025-09-28 11:17 | disposition home or self-care (01) | LOC: MAMO-SONO 11:15 | PROVIDERS: ATTEND Surgery | DX: N60.11 Diffuse cystic mastopathy of right breast (principal); N60.12 Diffuse cystic mastopathy of left breast ==